=== PATIENT | female | born 1950 | race Two or more races ===

== ENCOUNTER → 2017-03-20 | Outpatient (REF) | payer MEDICARE, BC ==
[2017-03-20 13:28] LABS: ALBUMIN 3.4 GM/DL (3.2-5.2); ALBUMIN/GLOBULIN RATIO 0.85 (1.00-1.93); ALKALINE PHOSPHATASE 70 U/L (45-117); ALT/SGPT 25 U/L (12-78); ANION GAP 9 MEQ/L (8-16); AST/SGOT 18 U/L (15-37); BILIRUBIN,TOTAL 0.3 MG/DL (0.2-1.0); BLOOD UREA NITROGEN 14 MG/DL (7-18); CALCIUM LEVEL 8.6 MG/DL (8.8-10.2); CARBON DIOXIDE LEVEL 26 MEQ/L (21-32); CHLORIDE LEVEL 105 MEQ/L (98-107); CHOLESTEROL LEVEL 195 MG/DL (<200); CREATININE FOR GFR 0.87 MG/DL (0.55-1.02); FREE T4 1.11 NG/DL (0.76-1.46); GLOMERULAR FILTRATION RATE > 60.0 (>45); GLUCOSE, FASTING 180 MG/DL (80-110); SODIUM LEVEL 140 MEQ/L (136-145); TOTAL PROTEIN 7.4 GM/DL (6.4-8.2); TRIGLYCERIDES LEVEL 175 MG/DL (<150)
== END ==
LOC: M SFHCADAM 07:59
PROVIDERS: ATTEND Family Medicine
DX: R73.01 Impaired fasting glucose (principal); E66.01 Morbid (severe) obesity due to excess calories; Z79.899 Other long term (current) drug therapy

== ENCOUNTER → 2017-04-23 | Outpatient (CLI) | payer MEDICARE, BC ==
[~2017-04-23] MED LIST: GASTROGRAFIN SOLUTION 30ML (Q9963) As Ordered ONE; ISOVUE-370 76% 100ML VIAL (Q9967) As Ordered ONE
--- NOTE | 2017-04-23 11:12 | REP ---
CT of the abdomen and pelvis with IV and bowel contrast: There is a ventral hernia slightly to the left of midline adjacent to the umbilicus in the medial portion of the left rectus abdominus muscle. The peritoneal defect measures 5.5 cm transversely by 3.4 cm craniocaudad. The hernia sac measures 8.6 centers centimeters transversely by seven 0.5 cm craniocaudad. The hernia contains omental fat. There is no bowel within the hernia sac. The visualized lung lopez are unremarkable. The hepatic parenchyma is diffusely less dense than the spleen compatible with hepato steatosis. There are no focal hepatic masses. The gallbladder, pancreas and spleen are unremarkable. The adrenals and kidneys are unremarkable. The abdominal aorta is unremarkable. The bowel and mesentery are unremarkable except for the above described ventral hernia. Pelvis: There is a large abdominal pannus hanging inferiorly over the pelvis containing multiple bowel loops and mesentery. The above described ventral hernia arises along the anterior margin of this pannus. This pannus represents a larger abdominal hernia with the peritoneal defect measuring 7.8 cm transversely by 11 cm craniocaudad. The hernia sac measures 20 cm transversely by 11 cm craniocaudad. In addition, there is a another hernia along the left lateral margin of the panus containing omentum and bowel loops with the peritoneal defect measuring 5.7 cm AP by by 11.8 cm craniocaudad. There is no evidence of bowel distension or obstruction. No bowel wall thickening to suggest strangulation. There is no ascites. The bladder is unremarkable. Impression: There are three ventral hernias having a complex relationship in the anterior pelvic wall. There is a large pannus hanging inferiorly over the anterior margin of the pelvis. This pannus is a ventral hernia. There are two hernias arising from this pannus one anteriorly slightly to the left of midline of the level that the level of the umbilicus as described. The other is along the left lateral margin of this pannus. All three hernias contain omentum and bowel. There is no evidence of bowel obstruction or strangulation. There is no ascites. There is hepato steatosis. Signed by Bill Castro MD 04/23/2017 11:03 A
== END ==
LOC: M RAD 07:28
PROVIDERS: ATTEND Surgery
DX: K43.2 Incisional hernia without obstruction or gangrene (principal)
CPT/HCPCS: 74177; Q9963; Q9967

== ENCOUNTER → 2017-04-25 | Outpatient (CLI) | payer MEDICARE, BC ==
[2017-04-25 16:29] LABS: ANION GAP 10 MEQ/L (8-16); BLOOD UREA NITROGEN 15 MG/DL (7-18); CALCIUM LEVEL 9.2 MG/DL (8.8-10.2); CARBON DIOXIDE LEVEL 28 MEQ/L (21-32); CHLORIDE LEVEL 104 MEQ/L (98-107); GLOMERULAR FILTRATION RATE > 60.0 (>45); GLUCOSE, FASTING 146 MG/DL (80-110); POTASSIUM SERUM 4.1 MEQ/L (3.5-5.1); SODIUM LEVEL 142 MEQ/L (136-145)
== END ==
LOC: M ADAMS 08:35
PROVIDERS: ATTEND Nurse Practitioner Family
DX: Z01.89 Encounter for other specified special examinations (principal)

== ENCOUNTER → 2017-06-22 | Outpatient (REF) | payer MEDICARE, BC | LOC: M SFHCADAM 11:42 | PROVIDERS: ATTEND Family Medicine | DX: E11.69 Type 2 diabetes mellitus with other specified complication (principal) ==

== ENCOUNTER → 2017-06-26 | Outpatient (REF) | payer MEDICARE, BC | LOC: M SFHCADAM 12:11 | PROVIDERS: ATTEND Family Medicine | DX: E11.69 Type 2 diabetes mellitus with other specified complication (principal) | CPT/HCPCS: 82043; G0463 ==

== ENCOUNTER → 2017-10-05 | Outpatient (REF) | payer MEDICARE, BC | LOC: M SFHCADAM 10:27 | PROVIDERS: ATTEND Family Medicine | DX: E11.69 Type 2 diabetes mellitus with other specified complication (principal) | CPT/HCPCS: 82043; 83036; G0463 ==

== ENCOUNTER → 2018-01-13 | Outpatient (REF) | payer MEDICARE, BC ==
[2018-01-13 14:19] LABS: ESTIMATED AVERAGE GLUCOSE 143 MG/DL (60-110); HEMOGLOBIN A1c 6.6 %
== END ==
LOC: M SFHCADAM 08:39
DX: E11.69 Type 2 diabetes mellitus with other specified complication (principal)
CPT/HCPCS: 83036

== ENCOUNTER → 2018-01-14 | Outpatient (REF) | payer MEDICARE, BC ==
[2018-01-14 12:39] LABS: BASO # 0.1 10^3/uL (0.0-0.2); BASO % 0.6 % (0.0-1.0); EOS # 0.3 10^3/uL (0.0-0.50); EOS % 2.4 % (0.0-3.0); HEMATOCRIT 40.4 % (36.0-47.0); IMMATURE GRANULOCYTE % 0.5 % (0-3.0); LYMPH # 3.5 10^3/uL (1.5-4.5); MEAN CORPUSCULAR HEMOGLOBIN 27.4 pg (27.0-33.0); MEAN CORPUSCULAR HGB CONC 32.2 g/dl (32.0-36.5); MEAN CORPUSCULAR VOLUME 85.1 fl (80.0-96.0); MONO % 8.4 % (0.0-5.0); NEUTROPHILS # 7.4 10^3/uL (1.8-7.7); NEUTROPHILS % 60.1 % (36.0-66.0); PLATELET COUNT, AUTOMATED 443 10^3/uL (150-450); RED BLOOD COUNT 4.75 10^6/uL (4.00-5.40); RED CELL DISTRIBUTION WIDTH 13.7 % (11.5-14.5); WHITE BLOOD COUNT 12.3 10^3/uL (4.0-10.0)
[2018-01-14 12:56] LABS: ALBUMIN 3.8 GM/DL (3.2-5.2); ALBUMIN/GLOBULIN RATIO 1.03 (1.00-1.93); ALKALINE PHOSPHATASE 89 U/L (45-117); ALT/SGPT 28 U/L (12-78); ANION GAP 9 MEQ/L (8-16); AST/SGOT 21 U/L (7-37); BILIRUBIN,TOTAL 0.3 MG/DL (0.2-1.0); BLOOD UREA NITROGEN 16 MG/DL (7-18); CARBON DIOXIDE LEVEL 27 MEQ/L (21-32); CHLORIDE LEVEL 104 MEQ/L (98-107); CREATININE FOR GFR 0.78 MG/DL (0.55-1.30); FREE T4 0.92 NG/DL (0.76-1.46); GLOMERULAR FILTRATION RATE > 60.0 (>45); GLUCOSE, FASTING 98 MG/DL (70-100); POTASSIUM SERUM 4.5 MEQ/L (3.5-5.1); SODIUM LEVEL 140 MEQ/L (136-145); TOTAL PROTEIN 7.5 GM/DL (6.4-8.2)
== END ==
LOC: M SFHCADAM 10:49
DX: J00 Acute nasopharyngitis [common cold] (principal); E11.69 Type 2 diabetes mellitus with other specified complication
CPT/HCPCS: 84443

== ENCOUNTER → 2018-02-01 | Outpatient (REF) | payer MEDICARE, BC ==
[2018-02-01 19:29] LABS: TOTAL PROTEIN,RANDOM URINE 11.6 MG/DL (0.0-12.0)
[2018-02-02 13:50] LABS: APPEARANCE, URINE CLEAR (CLEAR); BACTERIA, URINE AUTO 3+ (NEGATIVE); BILIRUBIN, URINE AUTO NEGATIVE (NEGATIVE); BLOOD, URINE BLOOD 1+ (NEGATIVE); COLOR, URINE STRAW (YELLOW); GLUCOSE, URINE (UA) AUTO NEGATIVE (NEGATIVE); KETONE, URINE AUTO NEGATIVE (NEGATIVE); LEUKOCYTE ESTERASE, URINE AUTO 2+ (NEGATIVE); MUCUS, URINE SMALL (NEGATIVE); NITRITE, URINE AUTO NEGATIVE (NEGATIVE); PROTEIN, URINE AUTO NEGATIVE (NEGATIVE); RBC, URINE AUTO 1 /HPF (0-3); SPECIFIC GRAVITY URINE AUTO 1.006 (1.002-1.035); SQUAMOUS EPITHELIAL CELL UR AU 0 /HPF (0-6); UROBILINOGEN, URINE AUTO 0.2 mg/dL (0.0-2.0); WBC, URINE AUTO 15 /HPF (0-3)
== END ==
LOC: M LAB REF 17:14
DX: R80.9 Proteinuria, unspecified (principal)
CPT/HCPCS: 82570

== ENCOUNTER → 2018-04-07 | Outpatient (REF) | payer MEDICARE, BC ==
[2018-04-07 18:51] LABS: BACTERIA, URINE AUTO 2+ (NEGATIVE); MUCUS, URINE SMALL (NEGATIVE); RBC, URINE AUTO 6 /HPF (0-3); SQUAMOUS EPITHELIAL CELL UR AU 0 /HPF (0-6); WBC, URINE AUTO 47 /HPF (0-3)
[2018-04-07 19:00] LABS: TOTAL PROTEIN,RANDOM URINE 40.1 MG/DL (0.0-12.0)
[2018-04-13 14:16] LABS: ANCA-ATYPICAL <1:20 titer (Neg:<1:20); ANTINUCLEAR ANTIBODIES DIRECT Negative (Negative); CYTOPLASMIC NEUTROP AB ANCA-C <1:20 titer (Neg:<1:20); PERINUCLEAR AB ANCA-P <1:20 titer (Neg:<1:20)
== END ==
LOC: M LAB REF 17:03
DX: R80.9 Proteinuria, unspecified (principal); R31.29 Other microscopic hematuria
CPT/HCPCS: 84156

== ENCOUNTER → 2018-05-19 | Outpatient (REF) | payer MEDICARE, BC ==
[2018-05-19 20:22] LABS: ESTIMATED AVERAGE GLUCOSE 140 MG/DL (60-110); HEMOGLOBIN A1c 6.5 %
== END ==
LOC: M SFHCADAM 14:33
DX: E11.69 Type 2 diabetes mellitus with other specified complication (principal)
CPT/HCPCS: 83036

== ENCOUNTER 2018-06-14 09:17 | Day surgery (SDC) | payer MEDICARE, BC ==
[2018-06-14] MEDS: NS 1,000 ML IV (11:15)
[2018-06-14] MEDS ORDERED: PROPOFOL 200 MG/20 ML VIAL As Ordered (11:56)
== END 2018-06-14 12:55 | disposition home or self-care (01) ==
LOC: M OPP 09:17
DX: Z12.11 Encounter for screening for malignant neoplasm of colon (principal); Z86.010 Personal history of colon polyps; I10 Essential (primary) hypertension; E78.5 Hyperlipidemia, unspecified; E11.9 Type 2 diabetes mellitus without complications; R06.02 Shortness of breath; G43.909 Migraine, unspecified, not intractable, without status migrainosus; F32.9 Major depressive disorder, single episode, unspecified; Z85.42 Personal history of malignant neoplasm of other parts of uterus; Z84.89 Family history of other specified conditions; Z88.5 Allergy status to narcotic agent; Z91.040 Latex allergy status; Z88.0 Allergy status to penicillin; Z88.8 Allergy status to other drugs, medicaments and biological substances; Z79.82 Long term (current) use of aspirin; Z79.899 Other long term (current) drug therapy; Z79.84 Long term (current) use of oral hypoglycemic drugs; Z80.3 Family history of malignant neoplasm of breast
CPT/HCPCS: G0105

== ENCOUNTER → 2018-08-09 | Outpatient (REF) | payer MEDICARE, BC ==
[2018-08-09 13:38] LABS: ESTIMATED AVERAGE GLUCOSE 131 MG/DL (60-110); HEMOGLOBIN A1c 6.2 %
== END ==
LOC: M SFHCADAM 08:18
DX: E11.69 Type 2 diabetes mellitus with other specified complication (principal)
CPT/HCPCS: 83036

== ENCOUNTER → 2018-08-10 | Outpatient (REF) | payer MEDICARE, BC ==
[2018-08-10 20:18] LABS: TOTAL PROTEIN,RANDOM URINE 29.9 MG/DL (0.0-12.0); URINE TOTAL PROTEIN 29.9 MG/DL (0-12)
[2018-08-10 21:27] LABS: COMPLEMENT C3 142 MG/DL (90-180)
[2018-08-10 21:27] LABS: TOTAL PROTEIN 7.1 GM/DL (6.4-8.2)
[2018-08-12 15:15] LABS: ALBUMIN 3.86 GM/DL (3.29-5.55); ALBUMIN % 54.3 % (55.8-66.1); ALPHA-1-GLOBULIN % 4.4 % (2.9-4.9); ALPHA-1-GLOBULINS 0.31 GM/DL (0.17-0.41); ALPHA-2-GLOBULINS 0.77 GM/DL (0.42-0.99); ALPHA-2-GLOBULINS % 10.8 % (7.1-11.8); BETA-1-GLOBULINS 0.58 GM/DL (0.28-0.60); BETA-1-GLOBULINS % 8.1 % (4.7-7.2); BETA-2-GLOBULINS 0.58 GM/DL (0.19-0.55); BETA-2-GLOBULINS % 8.1 % (3.2-6.5); GAMMA GLOBULIN % 14.3 % (11.1-18.8); GAMMA GLOBULINS 1.02 GM/DL (0.65-1.58)
[2018-08-12 15:33] LABS: UPEP INTERPRETATION NO M-SPIKE NOTED; URINE VOLUME RANDOM ML
[2018-08-13 00:24] LABS: ANTI DOUBLE STRAND-DNA AB 1 IU/mL (0-9); FREE KAPPA LIGHT CHAINS SERUM 19.4 mg/L (3.3-19.4); FREE LAMBDA LIGHT CHAINS SERUM 18.2 mg/L (5.7-26.3); KAPPA/LAMBDA RATIO SERUM 1.07 (0.26-1.65)
== END ==
LOC: M LAB REF 17:06
DX: R80.9 Proteinuria, unspecified (principal); R31.29 Other microscopic hematuria
CPT/HCPCS: 84165

== ENCOUNTER → 2018-11-25 | Outpatient (REF) | payer MEDICARE, BC ==
[~2018-11-25] MED LIST changes: +ASPI1TAB PO; +ATOR40TA75 PO; -GASTROGRAFIN SOLUTION 30ML (Q9963) As Ordered ONE; -ISOVUE-370 76% 100ML VIAL (Q9967) As Ordered ONE; +LISI-542 PO; +METF10004 PO; +VENL150C43 PO
[2018-11-25 13:45] LABS: ALBUMIN 3.6 GM/DL (3.2-5.2); ALT/SGPT 26 U/L (12-78); BILIRUBIN,TOTAL 0.3 MG/DL (0.2-1.0); BLOOD UREA NITROGEN 15 MG/DL (7-18); CALCIUM LEVEL 8.8 MG/DL (8.8-10.2); CARBON DIOXIDE LEVEL 29 MEQ/L (21-32); CHLORIDE LEVEL 103 MEQ/L (98-107); CHOLESTEROL LEVEL 157 MG/DL (<200); CHOLESTEROL RISK RATIO 2.854 (<5); CREATININE FOR GFR 0.81 MG/DL (0.55-1.30); GLOMERULAR FILTRATION RATE > 60.0 (>45); GLUCOSE, FASTING 124 MG/DL (70-100); HDL CHOLESTEROL 55 MG/DL (>40); LDL CHOLESTEROL 61 MG/DL (<100); NON-HDL-C 102 MG/DL; POTASSIUM SERUM 4.4 MEQ/L (3.5-5.1); SODIUM LEVEL 138 MEQ/L (136-145); TOTAL PROTEIN 7.2 GM/DL (6.4-8.2); TRIGLYCERIDES LEVEL 204 MG/DL (<150)
== END ==
LOC: M SFHCADAM 10:46
PROVIDERS: ATTEND Family Medicine
DX: E11.69 Type 2 diabetes mellitus with other specified complication (principal)

== ENCOUNTER → 2018-11-26 | Outpatient (REF) | payer MEDICARE, BC ==
[2018-11-26 15:11] LABS: MALB URINE SIEMENS 80.2 MG/L; MAU/CREAT RATIO 160.4 MCG/MG (0.0-30.0)
== END ==
LOC: M SFHCADAM 09:50
PROVIDERS: ATTEND Family Medicine
DX: E11.69 Type 2 diabetes mellitus with other specified complication (principal)
CPT/HCPCS: 82043; G0463

== ENCOUNTER → 2019-02-03 | Outpatient (REF) | payer MEDICARE, BC ==
[~2019-02-03] MED LIST changes: -ASPI1TAB PO; +ASPI81TA26 PO
== END ==
LOC: M LAB REF 13:26
PROVIDERS: ATTEND Internal Medicine Nephrology
DX: R80.9 Proteinuria, unspecified (principal)

== ENCOUNTER → 2019-02-16 | Outpatient (REF) | payer MEDICARE, BC ==
[2019-02-16 13:00] LABS: HEMOGLOBIN A1c 7.2 %
[2019-02-16 13:10] LABS: CREATININE, URINE 82.9 MG/DL; MAU/CREAT RATIO 278.6 MCG/MG (0.0-30.0)
== END ==
LOC: M SFHCADAM 11:19
PROVIDERS: ATTEND Family Medicine
DX: E11.69 Type 2 diabetes mellitus with other specified complication (principal)

== ENCOUNTER → 2021-12-13 | Outpatient (REF) | payer BC, MEDICARE ==
[~2021-12-13] MED LIST changes: -LISI-542 PO; +LISI5TAB11 PO
== END ==
LOC: M LAB REF 11:50
PROVIDERS: ATTEND Internal Medicine
DX: N76.0 Acute vaginitis (principal)

== ENCOUNTER → 2024-08-22 | Outpatient (CLI) | payer MEDICARE, BC | LOC: M WHC 14:42 | PROVIDERS: ATTEND Internal Medicine | DX: D48.7 Neoplasm of uncertain behavior of other specified sites (principal) ==

== ENCOUNTER → 2024-08-29 | Outpatient (REF) | payer MEDICARE, BC | LOC: M LAB REF 15:42 | PROVIDERS: ATTEND Surgery | DX: D17.22 Benign lipomatous neoplasm of skin and subcutaneous tissue of left arm (principal) ==

== ENCOUNTER → 2024-09-27 | Outpatient (CLI) | payer MEDICARE, BC ==
[~2024-09-27] MED LIST changes: +ALLO10TA PO; +JARD1TAB PO; +METF500T13 PO; +ROSU10TA61 PO; +TRUL0.5I SC; +VALS1TAB66 PO
== END ==
LOC: M PLAIMG 12:43
PROVIDERS: ATTEND Internal Medicine
DX: Z15.01 Genetic susceptibility to malignant neoplasm of breast (principal)

== ENCOUNTER → 2024-10-04 | Outpatient (REF) | payer MEDICARE, BC ==
[2024-10-04 14:00] LABS: CHOLESTEROL RISK RATIO 2.67 (<5); HDL CHOLESTEROL 51.9 MG/DL (>40); LDL CHOLESTEROL 60.7 MG/DL (<100); NON-HDL-C 87.1 MG/DL
== END ==
LOC: M LABDRWAD 12:52
PROVIDERS: ATTEND Internal Medicine
DX: I10 Essential (primary) hypertension (principal)

== ENCOUNTER 2024-12-08 07:25 | Day surgery (SDC) | payer MEDICARE, BC ==
[~2024-12-08] VITALS: Ht 170.2 cm; Wt 104.8 kg
[~2024-12-08 07:25] MED LIST changes: +GLYCOPYRROLATE INJ 0.2 MG/ML 2 ML VIAL As Ordered ONE; +LIDOCAINE 2% 100MG/5ML SDV (FOR ANES.) As Ordered ONE; +propofoL 200 MG/20 ML VIAL As Ordered ONE
[2024-12-08 09:29] VITALS: TEMP 97
[2024-12-08 09:57] VITALS: BP 127/63; O2SAT 97
== END 2024-12-08 10:03 | disposition home or self-care (01) ==
LOC: M OPP 07:25
PROVIDERS: ATTEND Internal Medicine Gastroenterology
DX: K62.1 Rectal polyp (principal); D12.4 Benign neoplasm of descending colon; D12.0 Benign neoplasm of cecum; K63.89 Other specified diseases of intestine; K57.30 Diverticulosis of large intestine without perforation or abscess without bleeding; K64.8 Other hemorrhoids; Z86.0100 Personal history of colon polyps, unspecified; Z88.1 Allergy status to other antibiotic agents; Z88.8 Allergy status to other drugs, medicaments and biological substances; Z91.040 Latex allergy status; Z79.85 Long-term (current) use of injectable non-insulin antidiabetic drugs; Z79.84 Long term (current) use of oral hypoglycemic drugs; Z79.899 Other long term (current) drug therapy
CPT/HCPCS: 45380; 45385; 88305; J1596

== ENCOUNTER → 2024-12-26 | Outpatient (CLI) | payer MEDICARE, BC ==
[~2024-12-26] MED LIST changes: -GLYCOPYRROLATE INJ 0.2 MG/ML 2 ML VIAL As Ordered ONE; -LIDOCAINE 2% 100MG/5ML SDV (FOR ANES.) As Ordered ONE; -propofoL 200 MG/20 ML VIAL As Ordered ONE
== END ==
LOC: M RAD 11:21
PROVIDERS: ATTEND Podiatrist Foot & Ankle Surgery
DX: I73.89 Other specified peripheral vascular diseases (principal); I70.293 Other atherosclerosis of native arteries of extremities, bilateral legs